=== PATIENT | female | born 1990 | race Caucasian/White ===

== ENCOUNTER 2020-03-28 14:54 | Emergency (ER) | payer OTHER ==
[~2020-03-28] VITALS: Ht 160 cm; Wt 53.4 kg
[2020-03-28 16:38] LABS: BASOPHILS % (AUTO) 0 % (0-1); EOSINOPHILS % (AUTO) 0 % (1-7); LYMPHOCYTES % (AUTO) 17 % (22-44); MEAN CORPUSCULAR HEMOGLOBIN 32.9 pg (27.0-34.8); MEAN PLATELET VOLUME 7.2 fL (7.4-10.4); MONOCYTES % (AUTO) 9 % (2-9); NEUTROPHILS % (AUTO) 73 % (42-75); PLATELET COUNT 224 x10^3/uL (130-400); RED BLOOD COUNT 4.49 x10^6/uL (3.82-5.3); RED CELL DISTRIBUTION WIDTH 13.2 % (9.6-15.2)
[2020-03-28 16:40] LABS: ALANINE AMINOTRANSFERASE 21 U/L (12-78); ALBUMIN 3.3 g/dL (3.4-5.0); CALCIUM 8.3 mg/dL (8.5-10.1)
[2020-03-28 16:45] LABS: ALKALINE PHOSPHATASE 96 U/L (45-117); BILIRUBIN,TOTAL 0.3 mg/dL (0.2-1.0); TOTAL PROTEIN 6.8 g/dL (6.4-8.2)
[2020-03-28 16:48] LABS: ANION GAP 5 mmol/L (5-15); CHLORIDE 112 mmol/L (98-107)
[2020-03-28 17:12] LABS: MD NO
--- NOTE | 2020-03-28 17:24 | NUR ---
DOOR PANELER. STRAIGHT CATH CANCELLED BY JOSE BUTTS. PT RE-EVALUATED BY JOSE ANDRADE IN TRIAGE AND TEST RESULTS DISCUSSED. PT TO BE DISCHARGED FROM TRIAGE.
[2020-03-28] MEDS ORDERED: TRAZ-175 PO (17:26)
[2020-03-28 17:28] VITALS: BP 132/98
== END 2020-03-28 18:03 | disposition home or self-care (01) ==
LOC: ED 17:30
DX: R11.2 Nausea with vomiting, unspecified (principal); R10.13 Epigastric pain
CPT/HCPCS: 36415; 76700; 80053; 83880; 84703; 85025; 99284

== ENCOUNTER 2020-06-21 14:21 | Emergency (ER) | payer OTHER ==
[~2020-06-21] VITALS: Ht 165.1 cm; Wt 50.0 kg
[~2020-06-21 14:21] MED LIST: TRAZ-175 PO
--- NOTE | 2020-06-21 14:47 | NUR ---
pt bib remsa for failure to thrive/si. PT IS LIVING WITH HER EX-FINANCES FATHER WHO CALLED. PT WAS LIVING IN HIS BATHROOM. PT HAS NOT TAKEN MEDS FOR 1 MONTH. PT PLACED IN GOWN IN SAFE ENVIRONMENT. SITTER IN VIEW. NO NEEDS AT THIS TIME.
[2020-06-21 14:57] LABS: ALBUMIN 3.2 g/dL (3.4-5.0); ANION GAP 6 mmol/L (5-15); CALCIUM 8.4 mg/dL (8.5-10.1); CHLORIDE 113 mmol/L (98-107); CREATININE 0.64 mg/dL (0.55-1.02)
[2020-06-21 14:58] LABS: SALICYLATE LEVEL < 1.7 mg/dL (2.8-20.0)
[2020-06-21 15:00] LABS: BASOPHILS % (AUTO) 1 % (0-1); EOSINOPHILS % (AUTO) 0 % (1-7); LYMPHOCYTES % (AUTO) 22 % (22-44); MEAN CORPUSCULAR HEMOGLOBIN 31.5 pg (27.0-34.8); MEAN CORPUSCULAR HGB CONC 33.3 g/dL (32.4-35.8); MEAN PLATELET VOLUME 7.9 fL (7.4-10.4); MONOCYTES % (AUTO) 9 % (2-9); NEUTROPHILS % (AUTO) 68 % (42-75); PLATELET COUNT 234 x10^3/uL (130-400); RED BLOOD COUNT 4.53 x10^6/uL (3.82-5.3); RED CELL DISTRIBUTION WIDTH 13.2 % (9.6-15.2)
[2020-06-21 15:02] LABS: MD NO
[2020-06-21] MEDS ORDERED: OLANZAPINE 5 MG TABLET ONE (15:26)
[2020-06-21] MEDS: OLANZAPINE 5 MG TABLET PO SCH (15:29)
--- NOTE | 2020-06-21 15:36 | NUR ---
PT SITTING ON [place]HENG WALTERS. MEAL TRAY GIVEN. CALL LIGHT WITHIN REACH. NO NEEDS AT THIS TIME. SITTER IN VIEW.
[2020-06-21 15:43] LABS: AMPHETAMINE SCREEN, URINE Negative (Negative); BARBITURATE SCREEN, URINE Negative (Negative); BENZODIAZEPINE SCREEN, URINE Negative (Negative); CANNABINOID SCREEN, URINE Negative (Negative); COCAINE SCREEN, URINE Negative (Negative); METHADONE SCREEN, URINE Negative (Negative); OPIATE SCREEN, URINE Negative (Negative)
--- NOTE | 2020-06-21 15:48 | NUR ---
BRANDAN DECLINED PT. ALL APROPRIATE PAPERWORK SENT TO [facility], CAROLINE KING
--- NOTE | 2020-06-21 16:22 | NUR ---
SBAR GIVEN TO CJ AT [facility]
--- NOTE | 2020-06-21 17:26 | NUR ---
PT SLEEPING ON SELENA, NAD. PT DENIED ADDITIONAL FOOD TRAY. CALL LIGHT WITHIN REACH. NO NEEDS AT THIS TIME.
[2020-06-21 18:17] LABS: MICROSCOPIC INDICATED
--- NOTE | 2020-06-21 18:45 | NUR ---
REPORT RECEIVED FROM JONEL BUTTS
--- NOTE | 2020-06-21 18:46 | NUR ---
PT SUPINE ON GURNEY, RESTING COMFORTABLY WITH EYES CLOSED. PT DENIES ANY NEEDS AT THIS TIME. SAFETY SHAH DOWN AND SITTER IN VIEW.
--- NOTE | 2020-06-22 02:48 | NUR ---
OFFERED TO MOVE PT FROM ED GURNEY TO HOSPITAL BED. PT DECLINED AT THIS TIME. "I JUST WANT TO SLEEP AND NOT MOVE, MAYBE LATER". NO ADDITIONAL NEEDS
--- NOTE | 2020-06-22 04:03 | NUR ---
PT SUPINE ON GURNEY, RESTING COMFORTABLY WITH EYES CLOSED. PT DENIES ANY NEEDS AT THIS TIME. SAFETY SHAH DOWN AND SITTER IN VIEW.
--- NOTE | 2020-06-22 05:18 | NUR ---
report recieved from karolina nagy. pt sleeping in [facility], resp even/unlabored, in line of sight of heri
--- NOTE | 2020-06-22 05:20 | NUR ---
BEDSIDE REPORT TO ABDELRAHMAN BUTTS
--- NOTE | 2020-06-22 06:54 | NUR ---
REPORT RECEIVED FROM ABDELRAHMAN. PT SLEEPING IN [facility]. SITTER AT BEDSIDE.
[2020-06-22 07:21] VITALS: BP 102/66
--- NOTE | 2020-06-22 08:19 | NUR ---
PT SWITCHED IN TO HOSPITAL BED. BREAKFAST PROVIDED.
[2020-06-22] MEDS: OLANZAPINE 5 MG TABLET PO SCH (09:00)
--- NOTE | 2020-06-22 09:48 | NUR ---
THROUGHPUT RN: PACKET W/ UPDATES FAXED TO [facility], [facility], [facility], AND [facility].
--- NOTE | 2020-06-22 10:05 | NUR ---
PT RESTING IN BED. CALL LIGHT WITHIN REACH, SITTER AT BEDSIDE
--- NOTE | 2020-06-22 10:13 | NUR ---
MARYANN RN: NO Jackson/ SAADIA AT [facility] WHO STATES PT ACCEPTED BY DR. THOPMSON AT [facility].
--- NOTE | 2020-06-22 10:14 | NUR ---
REPORT GIVEN TO BENJAMÍN ZEE AT [facility]
--- NOTE | 2020-06-22 12:12 | NUR ---
PT GIVEN LUNCH. CALL LIGHT WITHIN REACH, SITTER AT BEDSIDE
[2020-06-22] MEDS ORDERED: OLANZAPINE 5 MG TABLET ONE (13:02)
--- NOTE | 2020-06-22 14:00 | NUR ---
PT RESTING COMFORTABLY. SITTER AT BEDSIDE.
--- NOTE | 2020-06-22 14:56 | NUR ---
REPORT GIVEN TO ASIA. PT TO [facility].
== END 2020-06-22 15:03 | disposition home or self-care (01) ==
LOC: ED 18:12
DX: F23 Brief psychotic disorder (principal); F32.9 Major depressive disorder, single episode, unspecified; F22 Delusional disorders; F41.9 Anxiety disorder, unspecified; R62.7 Adult failure to thrive; Z68.1 Body mass index [BMI] 19.9 or less, adult
CPT/HCPCS: 36415; 80048; 80299; 80307; 80320; 80329; 81001; 82040; 84703; 85025; 87086; 99283; G0480